=== PATIENT | male | born 1935 | race Caucasian/White ===

== ENCOUNTER 2019-03-08 13:06 | Outpatient (CLI) | payer OTHER | END 2019-03-08 13:22 | disposition home or self-care (01) | LOC: RAD 501 13:06 | DX: R60.0 Localized edema (principal); E10.9 Type 1 diabetes mellitus without complications; I11.9 Hypertensive heart disease without heart failure; I73.9 Peripheral vascular disease, unspecified; E66.8 Other obesity ==

== ENCOUNTER 2022-11-02 11:09 | Emergency (ER) | payer OTHER ==
[~2022-11-02] VITALS: Ht 182.9 cm; Wt 93.0 kg
== END 2022-11-02 13:38 | disposition home or self-care (01) ==
LOC: ER 11:09
DX: R42 Dizziness and giddiness (principal); Z95.2 Presence of prosthetic heart valve; I10 Essential (primary) hypertension; E78.5 Hyperlipidemia, unspecified

== ENCOUNTER 2024-04-19 13:46 | Outpatient (CLI) | payer OTHER | END 2024-04-19 13:57 | disposition home or self-care (01) | LOC: RAD 13:46 | PROVIDERS: ATTEND Orthopaedic Surgery | DX: M25.561 Pain in right knee (principal); M25.562 Pain in left knee ==

== ENCOUNTER 2025-04-11 10:27 | Outpatient (CLI) | payer OTHER | END 2025-04-11 10:32 | disposition home or self-care (01) | LOC: RAD 10:27 | PROVIDERS: ATTEND Physical Medicine & Rehabilitation | DX: M54.59 Other low back pain (principal) ==